=== PATIENT | female | born 1990 | race Hispanic/Latino ===

== ENCOUNTER 2022-02-26 21:01 | Emergency (ER) | payer OTHER ==
[~2022-02-26] VITALS: Ht 157.5 cm; Wt 59.0 kg
[2022-02-26] MEDS ORDERED: ONDANSETRON 4MG INJ IVP ONE (21:30)
[2022-02-26] MEDS ORDERED: KETOROLAC 30MG VIAL (30MG/ML) IVP ONE (21:30)
[2022-02-26 21:33] LABS: EOSINOPHILS % (AUTO) 2.1 % (0.0-8.0); HEMATOCRIT 36.3 % (36-48); MEAN CORPUSCULAR HEMOGLOBIN 29.7 pg (27.0-33.0); MEAN CORPUSCULAR VOLUME 92.8 fL (79-99); NEUTROPHILS % (AUTO) 48.8 % (40.0-77.0); PLATELET COUNT (AUTO) 276 K/uL (130-400); RED BLOOD CELL COUNT(AUTO) 3.91 MIL/uL (4.00-5.50); RED CELL DISTRIBUTION WIDTH 13.5 % (11.0-15.5)
[2022-02-26 21:43] LABS: CREATININE 0.6 mg/dL (0.5-1.5); POTASSIUM 3.4 mmol/L (3.5-5.1)
[2022-02-26 21:45] LABS: APPEARANCE,URINE CLEAR (CLEAR); BILIRUBIN,URINE NEGATIVE (NEGATIVE); COLOR,URINE YELLOW (YELLOW); GLUCOSE, URINE (UA) NEGATIVE (NEGATIVE); KETONES,URINE NEGATIVE (NEGATIVE); LEUKOCYTE ESTERASE ,URINE NEGATIVE (NEGATIVE); NITRATE,URINE NEGATIVE (NEGATIVE); OCCULT BLOOD,URINE NEGATIVE (NEGATIVE); PROTEIN,URINE NEGATIVE (NEGATIVE)
[2022-02-26 21:47] LABS: ALBUMIN 3.9 g/dL (3.5-5.0); BILIRUBIN,TOTAL 0.2 mg/dL (0.2-1.0); TOTAL PROTEIN, SERUM 7.6 g/dL (6.0-8.3)
[2022-02-26 21:50] LABS: HCG,QUAL RESULT NEGATIVE (NEGATIVE)
[2022-02-26] MEDS ORDERED: POTASSIUM BICARB/CIT AC 25 MEQ TABLET.EFF PO ONE (22:00)
[2022-02-26] MEDS ORDERED: LACTULOSE 20 GM/30 ML UDCUP PO ONE (22:30)
[2022-02-26] MEDS ORDERED: MAGNESIUM CITRATE 296 ML SOLUTION PO ONE (22:30)
[2022-02-26] MEDS ORDERED: MAGNESIUM CITRATE 296 ML SOLUTION ONE (22:35)
[2022-02-26] MEDS ORDERED: LACTULOSE 20 GM/30 ML UDCUP ONE (22:35)
[2022-02-26 23:00] VITALS: BP 112/72
[2022-02-26] MEDS ORDERED: LACT10PA5 PO (23:26)
[2022-02-26] MEDS ORDERED: POTASSIUM BICARB/CIT AC 25 MEQ TABLET.EFF ONE (23:33)
[2022-02-26] MEDS ORDERED: ONDANSETRON 4MG INJ ONE (23:33)
[2022-02-26] MEDS ORDERED: KETOROLAC 30MG VIAL (30MG/ML) ONE (23:33)
== END 2022-02-26 23:54 | disposition home or self-care (01) ==
LOC: EDH 21:01
DX: R10.9 Unspecified abdominal pain (principal); K59.00 Constipation, unspecified
CPT/HCPCS: 36415; 74176; 80053; 81003; 81025; 85025; 96374; 96375; 99284; J1885; J2405

== ENCOUNTER 2022-05-06 13:54 | Emergency (ER) | payer BC, OTHER ==
[~2022-05-06] VITALS: Ht 157.5 cm; Wt 61.2 kg
[~2022-05-06 13:54] MED LIST: LACT10PA5 PO
[2022-05-06 14:13] LABS: BASOPHILS % (AUTO) 0.5 % (0.0-5.0); EOSINOPHILS % (AUTO) 1.1 % (0.0-8.0); HEMATOCRIT 31.2 % (36-48); LYMPHOCYTES % (AUTO) 18.4 % (21.0-51.0); MEAN CORPUSCULAR HEMOGLOBIN 30.3 pg (27.0-33.0); MEAN CORPUSCULAR HGB CONC 34.6 g/dL (32.0-36.0); MEAN CORPUSCULAR VOLUME 87.6 fL (79-99); MONOCYTES % (AUTO) 8.5 % (3.0-13.0); NEUTROPHILS % (AUTO) 71.3 % (40.0-77.0); PLATELET COUNT (AUTO) 342 K/uL (130-400); RED BLOOD CELL COUNT(AUTO) 3.56 MIL/uL (4.00-5.50); RED CELL DISTRIBUTION WIDTH 12.7 % (11.0-15.5); WHITE BLOOD COUNT (AUTO) 8.8 K/uL (4.8-10.8)
[2022-05-06 14:16] LABS: APPEARANCE,URINE CLEAR (CLEAR); BILIRUBIN,URINE NEGATIVE (NEGATIVE); COLOR,URINE YELLOW (YELLOW); GLUCOSE, URINE (UA) NEGATIVE (NEGATIVE); KETONES,URINE NEGATIVE (NEGATIVE); LEUKOCYTE ESTERASE ,URINE NEGATIVE (NEGATIVE); NITRATE,URINE NEGATIVE (NEGATIVE); OCCULT BLOOD,URINE NEGATIVE (NEGATIVE); PROTEIN,URINE NEGATIVE (NEGATIVE); UROBILINOGEN,URINE 0.2 mg/dL (0.2-1.0)
[2022-05-06 14:57] LABS: ALBUMIN 2.8 g/dL (3.5-5.0); BILIRUBIN,TOTAL 0.1 mg/dL (0.2-1.0); CREATININE 0.6 mg/dL (0.5-1.5); POTASSIUM 3.7 mmol/L (3.5-5.1)
[2022-05-06 16:01] VITALS: BP 104/60
== END 2022-05-06 16:00 | disposition home or self-care (01) ==
LOC: EDH 13:54
DX: O26.91 Pregnancy related conditions, unspecified, first trimester (principal); R10.2 Pelvic and perineal pain; Z3A.10 10 weeks gestation of pregnancy
CPT/HCPCS: 36415; 76801; 76802; 80053; 81003; 84702; 85025

== ENCOUNTER 2022-07-10 21:04 | Observation (INO) | payer BC, MEDICAID ==
[~2022-07-10] VITALS: Ht 157.5 cm; Wt 64.0 kg
[2022-07-10 21:06] VITALS: BP 100/64
[2022-07-10 21:50] LABS: BILIRUBIN,URINE NEGATIVE (NEGATIVE); COLOR,URINE YELLOW (YELLOW); GLUCOSE, URINE (UA) NEGATIVE (NEGATIVE); KETONES,URINE NEGATIVE (NEGATIVE); LEUKOCYTE ESTERASE ,URINE NEGATIVE (NEGATIVE); NITRATE,URINE NEGATIVE (NEGATIVE); OCCULT BLOOD,URINE NEGATIVE (NEGATIVE); PH,URINE 6.5 (5.0-8.0); PROTEIN,URINE NEGATIVE (NEGATIVE); UROBILINOGEN,URINE 0.2 mg/dL (0.2-1.0)
[2022-07-10 21:51] LABS: APPEARANCE,URINE SLIGHTLY CLOUDY (CLEAR)
[2022-07-10 21:55] LABS: AMPHET/METH SCREEN,URINE NEGATIVE (NEGATIVE); BARBITURATE SCREEN, URINE NEGATIVE (NEGATIVE); BENZODIAZEPINES SCREEN,URINE NEGATIVE (NEGATIVE); CANNABINOID SCREEN,URINE NEGATIVE (NEGATIVE); COCAINE SCREEN,URINE NEGATIVE (NEGATIVE); PHENCYCLIDINE SCREEN,URINE NEGATIVE (NEGATIVE)
[2022-07-10 22:05] LABS: BACTERIA,URINE Few /HPF (None Seen); MUCUS,URINE Moderate LPF (None Seen); RBC,URINE None Seen /HPF (0-1); SQUAMOUS EPITHELIAL CELL,UR Moderate /HPF (0-2)
[2022-07-10] MEDS ORDERED: LACTATED RINGERS 1000ML 1,000 ML IV SCH (22:30)
[2022-07-10] MEDS ORDERED: PROMETHAZINE HCL 25 MG/ML 1ML AMPULE IM PRN (23:00)
[2022-07-10] MEDS ORDERED: MEPERIDINE-PF 50 MG/ML SYG IVP PRN (23:00)
== END 2022-07-11 09:53 | disposition home or self-care (01) ==
LOC: EDH 21:04 → LDH 21:05
PROVIDERS: ADMIT Obstetrics & Gynecology; ATTEND Obstetrics & Gynecology
DX: O26.892 Other specified pregnancy related conditions, second trimester (principal); R10.2 Pelvic and perineal pain; O99.612 Diseases of the digestive system complicating pregnancy, second trimester; K59.00 Constipation, unspecified; Z3A.19 19 weeks gestation of pregnancy
CPT/HCPCS: 80305; 81001; G0378 ×13; G0379; J7120

== ENCOUNTER 2025-07-27 17:03 | Emergency (ER) | payer BC, MEDICAID ==
[~2025-07-27] VITALS: Ht 165.1 cm; Wt 61.2 kg
[2025-07-27 17:33] LABS: RAPID GROUP A STREP negative (NEGATIVE)
[2025-07-27 17:37] LABS: SARS-CoV-2, RNA, NAAT NEGATIVE SARS CoV-2 (NEGATIVE)
[2025-07-27 17:43] LABS: INFLUENZA TYPE A Negative For Type A (NEGATIVE); INFLUENZA TYPE B Negative For Type B (NEGATIVE)
--- NOTE | 2025-07-27 18:24 | ERN ---
ED Note History of Present Illness Stated Complaint: BACK PAIN, CP, HEADACHE, NAUSEA Chief Complaint: Multiple Complaints Time Seen by MD: 17:13 Dictation: 34-YEAR-OLD FEMALE PRESENTS TO ER COMPLAINTS OF FEVER, CHEST PAIN, BACK PAIN, FATIGUE ONSET TODAY. PATIENT DENIES PALPITATIONS. PATIENT DENIES TAKING ANY MEDICATION TO HELP WITH PAIN OR FEVER Allergies: Coded Allergies: No Known Drug Allergies (Unverified Allergy, Unknown, 02/26/22) Home Meds Active Scripts Lactulose (Lactulose) 10 Gm Packet, 10 GM PO DAILY, #30 PKT Prov:FLAVIA MENEZES 02/26/22 Past Medical History Past Medical History: No Pertinent History Surgical History: None Family History: Negative Social History: Negative LMP: Jul 09, 2025 : 5 Para: 3 Aborts: 1 Review of System Dictation CONSTITUTIONAL: NEGATIVE FOR CHILLS, AND WEIGHT LOSS EYES: NEGATIVE FOR INJURY, PAIN,REDNESS, AND DISCHARGE ENT: NEGATIVE FOR INJURY,PAIN OR SWELLING CARDIOVASCULAR: NEGATIVE FOR PALPITATIONS, AND EDEMA. POSITIVE CHEST PAIN RESPIRATORY: NEGATIVE FOR SHORTNESS OF BREATH, COUGH, WHEEZING, AND PLEURITIC CHEST PAIN ABDOMEN/GI: NEGATIVE FOR ABDOMINAL PAIN, NAUSEA, VOMITING, DIARRHEA, AND CONSTIPATION BACK: NEGATIVE FOR INJURY : NEGATIVE FOR INJURY, BLEEDING AND DISCHARGE MS/EXTREMITY: NEGATIVE FOR INJURY AND DEFORMITY SKIN: NEGATIVE FOR RASH, AND DISCOLORATION NEURO: NEGATIVE FOR HEADACHE, WEAKNESS, NUMBNESS, TINGLING, AND SEIZURE PSYCH: NEGATIVE FOR SUICIDE IDEATION, HOMICIDAL IDEATION, AND HALLUCINATIONS ALLERGY/IMMUNOLOGY: NEGATIVE FOR HIVES, RASH, AND ALLERGIES ALL SYSTEMS NEGATIVE, EXCEPT NOTED ABOVE. Initial Vital Sign VS Vital Signs Date Time Temp Pulse Resp B/P (MAP) Pulse Ox O2 Delivery O2 Flow Rate FiO2 07/27/25 17:06 102.0 101 20 105/70 98 Room Air 0 07/27/25 18:43 21 Physical Exam Dictation GENERAL: AWAKE, ALERT, NAD HEAD/FACE: NORMOCEPHALIC, ATRAUMATIC EYES: PERRL, EOMI, VISION AT BASELINE ENT: ORAL CAVITY CLEAR, TMS CLEAR, NO SIGNS OF INFECTION NECK: TRACHEA MIDLINE, SUPPLE, NO NUCHAL RIGIDITY CARDIOVASCULAR: RRR, NORMAL S1/S2, NO MRGS, NO JVD RESPIRATORY: CTAB, NO RESPIRATORY DISTRESS, NO RALES OR WHEEZES ABDOMEN: SOFT, NON-TENDER, NON-DISTENDED, NORMAL BOWEL SOUNDS, NO GUARDING OR REBOUND. SKIN: WARM, DRY, NORMAL TURGOR, NO RASH MS/EXTREMITY: PULSES EQUAL, NO CYANOSIS, NEUROVASCULAR INTACT, FROM NEURO: COAX4, GCS 15, STRENGTH 5/5, CN 2-12 INTACT, NORMAL CEREBELLAR EXAM, NORMAL GAIT, PSYCH: NORMAL BEHAVIOR, MOOD, AND AFFECT NORMAL Results (Laboratory/Radiology) Laboratory/Radiology Laboratory Tests Test 07/27/25 17:13 07/27/25 18:18 07/27/25 18:36 Influenza Type A Antigen Negative For Type A Influenza Type B Antigen Negative For Type B SARS-CoV-2, RNA, NAAT NEGATIVE SARS CoV-2 Group A Streptococcus Rapid negative (NEGATIVE) Urine Color YELLOW (YELLOW) Urine Appearance CLEAR (CLEAR) Urine pH 8.5 (5.0-8.0) H Urine Specific [place] 1.027 (1.001-1.031) Urine Protein 50 mg/dL (NEGATIVE) H Urine Glucose (UA) NEGATIVE mg/dL (NEGATIVE) Urine Ketones 40 mg/dL (NEGATIVE) H Urine Occult Blood NEGATIVE (NEGATIVE) Urine Nitrate NEGATIVE (NEGATIVE) Urine Bilirubin NEGATIVE mg/dL (NEGATIVE) Urine Urobilinogen 0.2 mg/dL (0.2-1.0) Urine Leukocyte Esterase NEGATIVE Jan/uL Urine RBC 2-5 /HPF (0-1) H Urine WBC 2-5 /HPF (0-1) H Urine Squamous Epithelial Cells RARE /HPF (0-2) Urine Bacteria None /HPF (None Seen) Urine HCG, Qualitative NEGATIVE (NEGATIVE) White Blood Count 12.2 K/uL (4.8-10.8) H Red Blood Count 3.86 MIL/uL (4.00-5.50) L Hemoglobin 11.5 g/dL (12.0-16.0) L Hematocrit 34.8 % (36-48) L Mean Corpuscular Volume 90.2 fL (79-99) Mean Corpuscular Hemoglobin 29.8 pg (27.0-33.0) Mean Corpuscular Hemoglobin Concent 33.0 g/dL (32.0-36.0) Red Cell Distribution Width 13.3 % (11.0-15.5) Platelet Count 261 K/uL (130-400) Mean Platelet Volume 9.1 fL (7.5-10.5) Immature Granulocyte % (Auto) 0.4 % (0-1) Neutrophils (%) (Auto) 90.7 % (40.0-77.0) H Lymphocytes (%) (Auto) 3.9 % (21.0-51.0) L Monocytes (%) (Auto) 4.6 % (3.0-13.0) Eosinophils (%) (Auto) 0.2 % (0.0-8.0) Basophils (%) (Auto) 0.2 % (0.0-5.0) Neutrophils # (Auto) 11.1 K/uL (1.8-7.7) H Lymphocytes # (Auto) 0.5 K/uL (1.0-4.8) L Monocytes # (Auto) 0.6 K/uL (0.1-1.0) Eosinophils # (Auto) 0.02 K/uL (0.00-0.70) Basophils # (Auto) 0.03 K/uL (0.00-0.20) Absolute Immature Granulocyte (auto 0.05 K/uL (0-1) Nucleated Red Blood Cells 0.0 % (0.0-0.19) White Cell Morphology Comment See comments Sodium Level 136 mmol/L (136-145) Potassium Level 3.9 mmol/L (3.5-5.1) Chloride Level 100 mmol/L (101-111) L Carbon Dioxide Level 28 mmol/L (21-32) Blood Urea Nitrogen 11 mg/dL (7-18) Creatinine 0.6 mg/dL (0.5-1.0) Glomerular Filtration Rate Calc 119 mL/min (>90) Random Glucose 101 mg/dL (70-105) Total Calcium 8.8 mg/dL (8.5-10.1) X-RAY Comment: EXAM: XR Chest, 2 Views. CLINICAL HISTORY: 34 year old female with Chest pain and fever. COMPARISON: XR Chest dated 02/16/2016. FINDINGS: LUNGS: The lungs are clear. No consolidation. PLEURAL SPACES: No pleural effusion or pneumothorax. HEART: The heart size is normal. BONES: No acute osseous abnormality. IMPRESSION: 1. No acute cardiopulmonary pathology. 2. Findings are similar to prior XR Chest dated 02/16/2016. /[place] ED Course ED Course Orders Procedure Category Date Status Time Covid Rna Naat LAB 07/27/25 Complete 17:10 Rapid (Group A Strep) LAB 07/27/25 Complete 17:10 Influenza Type A & B, LAB 07/27/25 Complete Rapid 17:10 Urinalysis Profile LAB 07/27/25 Complete 17:10 ,Urine Test LAB 07/27/25 Complete 17:10 Chest 2vws RAD 07/27/25 Resulted 17:37 Cbc With Differential LAB 07/27/25 Complete 17:37 Basic Metabolic Panel LAB 07/27/25 Complete 17:37 Ibuprofen 600 Mg PHA 07/27/25 Complete Tablet (Motrin) 19:00 Current Medications Medications (Trade) Dose Ordered Sig/Alicia Route PRN Reason Start Time Stop Time Status Last Admin Dose Admin Ibuprofen (moTRIN) 600 mg ONCE ONCE PO 07/27/25 19:00 07/27/25 19:01 DC 07/27/25 18:41 Vital Signs Date Time Temp Pulse Resp B/P (MAP) Pulse Ox O2 Delivery O2 Flow Rate FiO2 07/27/25 18:43 101.5 94 20 106/65 97 Room Air* 0 21 07/27/25 18:41 102.0 07/27/25 17:06 102.0 101 20 105/70 98 Room Air 0 Medical Decision Making MDM MDM: DIFFERENTIAL DIAGNOSIS: FEVER, UPPER RESPIRATORY VIRAL ILLNESS, PNEUMONIA, COSTOCHONDRITIS RATIONALE: TESTS CONSIDERED AND ORDERED SECONDARY TO SHARED DECISION MAKING INCLUDE: LABS, ECG AND RADIOLOGY PREVIOUS OUTSIDE RECORDS REVIEWED: OLD ER VISITS. RISK OF COMPLICATION AND/OR MORBIDITY OR MORTALITY OF PATIENT MANAGEMENT: NONE MEDICATIONS-PER MEDICATION RECONCILIATION NEED FOR HOSPITALIZATION: PATIENT DOES NOT MEET CRITERIA FOR HOSPITALIZATION. NEED FOR EMERGENCY MAJOR/MINOR SURGERY: NO THERE ARE NO SOCIAL CONCERNS WITH THIS PATIENT. PRESCRIPTION DRUG MANAGEMENT PRESCRIPTIONS WILL INCLUDE SYMPTOMATIC CARE PATIENT'S PRIOR EXTERNAL MEDICAL RECORDS FROM OTHER ER VISITS WERE REVIEWED BY ME INDICATED. PRIOR TESTING AND RESULTS FROM PREVIOUS VISITS WERE REVIEWED. PRIOR TESTS WERE TAKEN INTO ACCOUNT WITH MEDICAL DECISION MAKING AND RESOURCE UTILIZATION, INDEPENDENT HISTORIAN/HISTORIANS WERE USED TO OBTAIN COMPLETE MEDICAL HISTORY. I INDEPENDENTLY INTERPRETED THE TEST THAT WERE PERFORMED, RESULTS WERE REVIEWED BY ME AND CONSIDERED FINDINGS ON RADIOLOGY IF ORDERED. DX & DISP Disposition: Discharge Departure Impression: Primary Impression: Fever Additional Impressions: URI (upper respiratory infection), Back pain Condition: Stable Additional Instructions: TAKE MEDICATIONS TO HELP WITH FEVER AND PAIN CONTROL. FOLLOW-UP WITH YOUR PCP IN 24-72 HOURS AND IN THE EVENT IF SYMPTOMS WORSEN OR AN EMERGENCY OVERNIGHT REPORT TO THE ED IMMEDIATELY Referrals: AUDREY MONTIEL JR., MD (PCP) ABBY BERMUDEZ NP Jul 27, 2025 18:24 GLADYS BAKER DO Jul 27, 2025 19:53
[2025-07-27 18:37] LABS: APPEARANCE,URINE CLEAR (CLEAR); GLUCOSE, URINE (UA) NEGATIVE (NEGATIVE); LEUKOCYTE ESTERASE ,URINE NEGATIVE Leu/uL (NEGATIVE); NITRATE,URINE NEGATIVE (NEGATIVE); OCCULT BLOOD,URINE NEGATIVE (NEGATIVE)
[2025-07-27 18:38] LABS: ADD UA MICROSCOPIC YES
[2025-07-27 18:39] LABS: HCG,QUALITATIVE URINE NEGATIVE (NEGATIVE)
[2025-07-27 18:40] LABS: SQUAMOUS EPITHELIAL CELL,UR RARE /HPF (0-2)
[2025-07-27 18:41] VITALS: TEMP 102
[2025-07-27 18:41] LABS: IMMATURE GRANULOCYTE ABSOLUTE 0.05 K/uL (0-1); NUCLEATED RED BLOOD CELLS 0.0 % (0.0-0.19); PLATELET COUNT (AUTO) 261 K/uL (130-400); RED BLOOD CELL COUNT(AUTO) 3.86 MIL/uL (4.00-5.50); RED CELL DISTRIBUTION WIDTH 13.3 % (11.0-15.5); WHITE BLOOD COUNT (AUTO) 12.2 K/uL (4.8-10.8)
[2025-07-27 18:48] LABS: CREATININE 0.6 mg/dL (0.5-1.0); GLOMERULAR FILTR. RATE CALC 119.0 mL/min (>90); GLUCOSE,RANDOM 101.0 mg/dL (70-105); SODIUM SERUM 136.0 mmol/L (136-145); UREA NITROGEN, BLOOD 11.0 mg/dL (7-18)
--- NOTE | 2025-07-27 19:01 | HMCIMG ---
EXAM: XR Chest, 2 Views. CLINICAL HISTORY: 34 year old female with Chest pain and fever. COMPARISON: XR Chest dated 02/16/2016. FINDINGS: LUNGS: The lungs are clear. No consolidation. PLEURAL SPACES: No pleural effusion or pneumothorax. HEART: The heart size is normal. BONES: No acute osseous abnormality. IMPRESSION: 1. No acute cardiopulmonary pathology. 2. Findings are similar to prior XR Chest dated 02/16/2016. /[place]
--- NOTE | 2025-07-27 20:12 | NUR ---
CALLED PT FROM [facility] AT THIS TIME NO T AVAILABLE OR FOUND AT THIS TIME
[2025-07-27 20:17] VITALS: BP 106/65; PULSE 94; RESP 20; TEMP 101.2; O2SAT 97
== END 2025-07-27 20:20 | disposition home or self-care (01) ==
LOC: EDH 17:03
DX: J06.9 Acute upper respiratory infection, unspecified (principal); R50.9 Fever, unspecified; M54.50 Low back pain, unspecified; Z20.822 Contact with and (suspected) exposure to COVID-19
CPT/HCPCS: 36415; 71046; 80048; 81001; 81025; 85025; 87635; 87804; 87880; 99283